=== PATIENT | female | born 1950 | race Caucasian/White ===

== ENCOUNTER 2016-11-30 10:49 | Outpatient (CLI) | payer MEDICARE, OTHER ==
[2016-11-30 11:41] LABS: eGFR (African) > 60; eGFR (Non-African) > 60
== END 2016-11-30 10:50 ==
LOC: LAB 10:49
PROVIDERS: ATTEND Family Medicine
DX: I10 Essential (primary) hypertension (principal); E78.5 Hyperlipidemia, unspecified; E11.9 Type 2 diabetes mellitus without complications; E03.9 Hypothyroidism, unspecified
CPT/HCPCS: 36415; 80053; 80061; 83036; 84439; 84443; 84481